=== PATIENT | male | born 1970 | race Caucasian/White ===

== ENCOUNTER 2021-02-02 09:42 | Inpatient (IN) | payer OTHER ==
[~2021-02-02] VITALS: Ht 177.8 cm; Wt 80.4 kg
[~2021-02-02 09:42] MED LIST: ADVIL100 M1 PO; ATARAX,VISTARIL50 MG PO; AVPAK AZITHROM250 M1 PO; CARBIDOPA/LEVOD1 TA1 PO; DICYCLOMINE HCL20 MG PO; QUETIAPINE FUMA25 MG PO; TYLENOL325 M1 PO; ZOFRAN 4 MG ED2 TAB PO
[2021-02-02 09:53] VITALS: BP 150/91
[2021-02-02 10:55] LABS: BASO % 0.5 % (0.0-1.0); EOS # 0.1 10*3/uL (0.0-0.4); EOS % 1.4 % (1.0-4.0); HEMATOCRIT 45.9 % (42.0-52.0); LYMPH # 1.5 10*3/uL (1.3-4.4); LYMPH % 16.9 % (27.0-41.0); MEAN CELL VOLUME 90.4 fl (80.0-94.0); MEAN CORPUSCULAR HGB 30.7 pg (27.0-31.0); MEAN PLATELET VOLUME 9.2 fl (9.6-12.3); MONO # 0.6 10*3/uL (0.1-1.0); MONO % 6.2 % (3.0-9.0); NEUT # 6.6 10*3/uL (2.3-7.9); NEUT % 74.7 % (47.0-73.0); PLATELET COUNT AUTOMATED 197 10*3/uL (130-400); RED BLOOD COUNT 5.08 10*6/uL (4.50-5.90); WHITE BLOOD COUNT 8.8 10*3/uL (4.8-10.8)
[2021-02-02 11:12] LABS: ALBUMIN 3.3 gm/dl (3.1-4.5); ALKALINE PHOSPHATASE 95 U/L (45-117); BUN 12 mg/dl (7-24); CHLORIDE 109 mmol/L (98-107); CPK 105 U/L (39-308); CREATININE 0.92 mg/dL (0.70-1.30); POTASSIUM 3.8 mmol/L (3.5-5.1); SGOT/AST 235 IU/L (3-35); SGPT/ALT 735 U/L (12-78); SODIUM 137 mmol/L (136-145); TOTAL PROTEIN 7.5 gm/dL (6.4-8.2)
[2021-02-02 11:34] LABS: ETHYL ALCOHOL < 3.0 mg/dl (<3)
[2021-02-02 11:44] LABS: URINE AMPHETAMINES < 1000 (1000ng/ml); URINE BARBITURATES < 200 (200ng/ml); URINE BENZODIAZEPINES < 200 (200ng/ml); URINE CANNABINOIDS (THC) < 50 (50ng/ml); URINE COCAINE > 300 (300ng/ml); URINE METHADONE < 300 (300ng/ml); URINE OPIATES < 300 (300ng/ml)
[2021-02-02 11:45] LABS: URINE PHENCYCLIDINE < 25 (25ng/ml)
[2021-02-02 17:00] VITALS: BP 127/84
[2021-02-02 20:00] VITALS: BP 101/61
[2021-02-03] VITALS: BP 106/58
[2021-02-03 07:06] LABS: ALBUMIN 3.1 gm/dl (3.1-4.5); TOTAL PROTEIN 7.2 gm/dL (6.4-8.2)
[2021-02-03 08:00] VITALS: BP 105/67
[2021-02-03 12:00] VITALS: BP 123/84
[2021-02-03 16:00] VITALS: BP 118/68
[2021-02-03 20:00] VITALS: BP 101/59
[2021-02-04] VITALS: BP 110/73
[2021-02-04 08:00] VITALS: BP 114/90
[2021-02-04 14:07] LABS: HEP B CORE AB, IGM Positive (Negative); HEPATITIS B SURFACE AG Positive (Negative); HEPATITIS C VIRUS ANTIBODY >11.0 s/co (0.0-0.9)
== END 2021-02-04 10:39 | disposition left against medical advice (07) | DRG 770 ==
LOC: ED 09:42 → EDHOLD 13:09 → 4E 13:09 → EDHOLD 14:52 → 4E 16:38
PROVIDERS: Emergency Medicine; Registered Nurse; ADMIT Emergency Medicine; ATTEND Emergency Medicine
DX: F14.23 Cocaine dependence with withdrawal (principal); E44.1 Mild protein-calorie malnutrition; I10 Essential (primary) hypertension; F32.A Depression, unspecified; E11.65 Type 2 diabetes mellitus with hyperglycemia; F17.210 Nicotine dependence, cigarettes, uncomplicated; Z79.899 Other long term (current) drug therapy; Z71.6 Tobacco abuse counseling